=== PATIENT | female | born 1950 | race Caucasian/White ===

== ENCOUNTER 2022-07-29 08:35 | Inpatient (IN) | payer OTHER, BC ==
[2022-07-29 09:12] VITALS: BMI 37.5
[2022-07-29] MEDS ORDERED: FENTANYL CITRATE/PF 50 MCG/ML VIAL ONE (10:54)
[2022-07-29] MEDS ORDERED: BUPIVACAINE HCL 100 ML ONE (10:54)
[2022-07-29] MEDS ORDERED: BUPIVACAINE LIPOSOME/PF (EXPAREL) 266 MG/20 ML VIAL ONE (10:54)
[2022-07-29] MEDS ORDERED: MIDAZOLAM HCL 2 MG/2 ML SINGLE DOSE VIAL ONE ×2 (10:54→12:00)
[2022-07-29] MEDS ORDERED: TRANEXAMIC ACID 1000 MG/10 ML VIAL IVPUSH ONE (11:00)
[2022-07-29] MEDS ORDERED: CEFAZOLIN 2 GM in DEXTROSE 5%-WATER - 50 ML IVPB ONE (11:00)
[2022-07-29] MEDS ORDERED: ceFAZolin SODIUM 1 GM VIAL ONE ×3 (11:03→11:54)
[2022-07-29] MEDS ORDERED: VANCOMYCIN 1,000 MG VIAL (RESTRICTED TO ID ONLY) ONE (11:03)
[2022-07-29] MEDS ORDERED: ONDANSETRON 4 MG/2 ML VIAL IVPUSH PRN (11:11)
[2022-07-29] MEDS ORDERED: oxyCODONE HCL 5 MG TABLET PO PRN ×2 (11:11)
[2022-07-29] MEDS ORDERED: LACTATED RINGERS SOLUTION 1,000 ML IV SCH (11:15)
[2022-07-29] MEDS ORDERED: TRANEXAMIC ACID 1000 MG/10 ML VIAL ONE (11:54)
[2022-07-29] MEDS ORDERED: ONDANSETRON 4 MG/2 ML VIAL ONE (11:54)
[2022-07-29] MEDS ORDERED: DEXAMETHASONE SOD PHOSPHATE 4 MG/1 ML VIAL ONE (11:54)
[2022-07-29] MEDS ORDERED: VASOPRESSIN 20 UNITS/ML VIAL IV ONE (12:12)
[2022-07-29] MEDS ORDERED: ACETAMINOPHEN INJECTION 100 ML IVPB ONE (14:09)
[2022-07-29] MEDS: ACETAMINOPHEN 1000 MG/100 ML BAG IVPB ONE ×2 (14:13→17:14)
[2022-07-29] MEDS: ACETAMINOPHEN 500 MG TABLET (FP) PO SCH ×2 (18:56→23:00)
[2022-07-29] MEDS: oxyCODONE HCL 10 MG SUSTAINED ACTING TABLET PO SCH (22:07)
[2022-07-30] MEDS: ACETAMINOPHEN 500 MG TABLET (FP) PO SCH ×2 (06:13→12:31)
[2022-07-30] MEDS ORDERED: DONNATAL PO PRN (08:20)
[2022-07-30] MEDS ORDERED: MAG HYDROX/AL HYDROX/SIMETH 30 ML UNIT-DOSE CUP PO PRN (09:01)
[2022-07-30] MEDS ORDERED: SENNOSIDES/DOCUSATE COMBO (SENNA PLUS) TABLET (UD) PO SCH (10:00)
[2022-07-30] MEDS ORDERED: MULTIVITAMINS (DAILY MVI) TABLET (FP) PO SCH (10:00)
[2022-07-30] MEDS ORDERED: ASPIRIN 325 MG TABLET PO SCH (10:00)
[2022-07-30] MEDS ORDERED: clonazePAM 0.5 MG TABLET PO SCH (10:00)
[2022-07-30] MEDS ORDERED: FERROUS SO4 325 MG TABLET (FP) PO SCH (10:00)
[2022-07-30] MEDS ORDERED: PANTOPRAZOLE 40 MG TABLET PO SCH (10:00)
[2022-07-30] MEDS ORDERED: ASCORBIC ACID 500 MG TABLET (FP) PO SCH (10:00)
[2022-07-30] MEDS ORDERED: GABAPENTIN 400 MG CAPSULE PO SCH (10:00)
[2022-07-30] MEDS ORDERED: CEFAZOLIN SODIUM 2 GM in DEXTROSE 5%-WATER 100 ML IVPB SCH (10:00)
[2022-07-30] MEDS: oxyCODONE HCL 10 MG SUSTAINED ACTING TABLET PO SCH (12:28)
[2022-07-30 14:15] VITALS: BP 121/48; PULSE 55; RESP 16; TEMP 98.9
[2022-07-30] MEDS ORDERED: DULoxetine HCL 30 MG CAPSULE.DR PO SCH (22:00)
== END 2022-07-30 16:23 | disposition home health service (06) | DRG 470 ==
LOC: FM/S 08:35
PROVIDERS: ADMIT Orthopaedic Surgery; ATTEND Orthopaedic Surgery
PROC: 8E0Y0CZ Robotic Assisted Procedure of Lower Extremity, Open Approach (ICD-10-PCS; 2022-07-29)
PROC: 0SRC0J9 Replacement of Right Knee Joint with Synthetic Substitute, Cemented, Open Approach (ICD-10-PCS; principal; 2022-07-29 12:05)
DX: M17.11 Unilateral primary osteoarthritis, right knee (principal)
CPT/HCPCS: 73560-TC-RT-FY; 94760; 97010-GP; 97116-GP; C1713; C1776; C1889; C9803-CS; U0003; U0005